=== PATIENT | female | born 1990 ===

== ENCOUNTER → 2022-09-24 | Outpatient (REF) | payer OTHER | LOC: M WUC 17:44 | PROVIDERS: ATTEND Student in an Organized Health Care Education/Training Program | DX: R30.0 Dysuria (principal) ==

== ENCOUNTER 2023-02-22 17:35 | Outpatient (CLI) | payer OTHER ==
[~2023-02-22] VITALS: Ht 162.6 cm; Wt 80.5 kg
[2023-02-22 17:56] VITALS: BP 107/56; O2SAT 97
[2023-02-22] MEDS ORDERED: PRENTAB9 PO (18:03)
[2023-02-22] MEDS ORDERED: LR 1,000 ML IV ONE (18:15)
[2023-02-22] MEDS ORDERED: ASCO500T PO (18:21)
[2023-02-22] MEDS ORDERED: VITA100T59 PO (18:21)
[2023-02-22] MEDS ORDERED: FERR325T3 PO (18:21)
[2023-02-22] MEDS ORDERED: HOME MED LIST COMPLETE! XX SCH (18:25)
[2023-02-22 18:56] LABS: HEMATOCRIT 31.1 % (36.0-47.0); HEMOGLOBIN 10.3 g/dl (12.0-15.5); MEAN CORPUSCULAR HEMOGLOBIN 31.8 pg (27.0-33.0); MEAN CORPUSCULAR HGB CONC 33.1 g/dl (32.0-36.5); PLATELET COUNT, AUTOMATED 177 10^3/uL (150-450); RED BLOOD COUNT 3.24 10^6/uL (4.00-5.40); WHITE BLOOD COUNT 8.3 10^3/uL (4.0-10.0)
[2023-02-22 19:09] VITALS: BP 122/65
[2023-02-22 20:29] VITALS: BP 113/56
== END 2023-02-22 20:52 | disposition home or self-care (01) ==
LOC: M LDO 17:35
PROVIDERS: ATTEND Obstetrics & Gynecology
DX: O26.893 Other specified pregnancy related conditions, third trimester (principal); R00.2 Palpitations; O99.013 Anemia complicating pregnancy, third trimester; Z88.1 Allergy status to other antibiotic agents; Z88.8 Allergy status to other drugs, medicaments and biological substances
CPT/HCPCS: 59025; 84443; 85027; 93005; G0463

== ENCOUNTER 2023-04-01 23:05 | Inpatient (IN) | payer OTHER ==
[~2023-04-01] VITALS: Ht 162.6 cm; Wt 83.8 kg
[~2023-04-01 23:05] MED LIST: ASCO500T PO; FERR325T3 PO; PRENTAB9 PO; VITA100T59 PO
[2023-04-01 23:20] VITALS: BP 132/81
[2023-04-02] VITALS (8 sets, daily range): BP systolic 106–127; BP diastolic 57–71; O2SAT 97–98
[2023-04-02] MEDS ORDERED: LACTATED RINGER'S 1000 ML IV STA (00:03)
[2023-04-02] MEDS ORDERED: OXYTOCIN INJ 10UNITS/ML 1ML VIAL IV PRN (00:05)
[2023-04-02] MEDS ORDERED: LR 1,000 ML IV SCH (00:05)
[2023-04-02] MEDS ORDERED: CARBOPROST TROMETHAMINE 250 MCG/ML AMP IM PRN (00:05)
[2023-04-02] MEDS ORDERED: OXYTOCIN DRIP 30 UNITS in IV 1 EA IV PRN ×6 (00:05)
[2023-04-02] MEDS ORDERED: TRANEXAMIC ACID INJection 1,000 MG in NS 100 ML IV PRN (00:05)
[2023-04-02] MEDS ORDERED: LIDOCAINE 1% MDV 20ML VIAL INFIL PRN (00:05)
[2023-04-02] MEDS ORDERED: METHYLERGONOVINE MALEATE 0.2MG/ML 1ML VIAL IM PRN (00:05)
[2023-04-02] MEDS ORDERED: OXYTOCIN INJ 10UNITS/ML 1ML VIAL IM PRN (00:05)
[2023-04-02] MEDS ORDERED: diphenhydrAMINE 50MG/ML VIAL IV PRN (00:15)
[2023-04-02] MEDS ORDERED: ONDANSETRON 4MG 2ML VIAL IV PRN (00:15)
[2023-04-02] MEDS ORDERED: NALOXONE INJ 0.4MG/1ML VIAL IV PRN (00:15)
[2023-04-02] MEDS ORDERED: ePHEDrine SULFATE 25 MG/5 ML(5MG/ML) SYRINGE IVP PRN (00:15)
[2023-04-02] MEDS ORDERED: FENTANYL/ROPIVACAINE/NACL BAG 100 ML EPIDURAL SCH (00:15)
[2023-04-02] MEDS ORDERED: EPIDURAL/PCA KEYS XX PRN (00:15)
[2023-04-02] MEDS ORDERED: LR 500 ML IV PRN (00:15)
[2023-04-02 00:24] LABS: HEMATOCRIT 33.7 % (36.0-47.0); HEMOGLOBIN 11.2 g/dl (12.0-15.5); MEAN CORPUSCULAR HEMOGLOBIN 31.5 pg (27.0-33.0); MEAN CORPUSCULAR HGB CONC 33.2 g/dl (32.0-36.5); MEAN CORPUSCULAR VOLUME 94.9 fl (80.0-96.0); PLATELET COUNT, AUTOMATED 210 10^3/uL (150-450); RED BLOOD COUNT 3.55 10^6/uL (4.00-5.40); WHITE BLOOD COUNT 10.7 10^3/uL (4.0-10.0)
[2023-04-02] MEDS ORDERED: DIBUCAINE 1% OINTMENT 30GM TOP PRN (00:35)
[2023-04-02] MEDS ORDERED: RHOGAM 300MCG (1500IU) INJ IM SCH (00:35)
[2023-04-02] MEDS ORDERED: DOCUSATE SODIUM 100MG CAPSULE PO PRN (00:35)
[2023-04-02] MEDS: ACETAMINOPHEN 500 MG TAB PO PRN ×2 (07:55→18:27)
[2023-04-02] MEDS: PRENATAL VITAMINS CHEWABLE TABLET PO SCH (08:00)
[2023-04-02] MEDS ORDERED: D 50CAP2 PO (15:47)
[2023-04-03 06:00] VITALS: BP 118/57; O2SAT 96
[2023-04-03] MEDS: PRENATAL VITAMINS CHEWABLE TABLET PO SCH (07:31)
[2023-04-03] MEDS ORDERED: INFLUENZA QUADRIVALENT PF VACCINE 0.5ML SYRINGE IM.IMMUN ONE (09:00)
[2023-04-03] MEDS: ACETAMINOPHEN 500 MG TAB PO PRN (10:48)
[2023-04-04] MEDS ORDERED: MEASLES,MUMPS,RUBELLA VACCINE INJ (MMR-II) SC.IMMUN ONE (09:00)
== END 2023-04-03 11:23 | disposition home or self-care (01) | DRG 807 ==
LOC: M LDO 23:05 → M LDI 04-02 00:03 → M OBS 04-02 02:04
PROVIDERS: ADMIT Obstetrics & Gynecology; ATTEND Obstetrics & Gynecology
PROC: 10E0XZZ Delivery of Products of Conception, External Approach (ICD-10-PCS; principal; 2023-04-02)
PROC: 0HQ9XZZ Repair Perineum Skin, External Approach (ICD-10-PCS; 2023-04-02)
DX: O62.3 Precipitate labor (principal); Z37.0 Single live birth; Z3A.39 39 weeks gestation of pregnancy; O70.0 First degree perineal laceration during delivery